=== PATIENT | female | born 1990 | race African-American/Black ===

== ENCOUNTER 2021-07-07 15:37 | Emergency (ER) | payer OTHER ==
[~2021-07-07] VITALS: Ht 167.6 cm; Wt 54.4 kg
[2021-07-07 17:52] LABS: CALCIUM 8.9 mg/dL (8.5-10.1); CREATININE 0.7 mg/dL (0.6-1.0); POTASSIUM 3.6 mmol/L (3.5-5.1)
[2021-07-07 18:25] VITALS: BP 98/68
== END 2021-07-07 18:26 | disposition home or self-care (01) ==
LOC: ER 15:37
PROVIDERS: Nurse Practitioner
DX: M79.602 Pain in left arm (principal); F17.210 Nicotine dependence, cigarettes, uncomplicated